=== PATIENT | female | born 1950 | race Caucasian/White ===

== ENCOUNTER → 2016-05-21 | Outpatient (CLI) | payer OTHER, MEDICARE ==
--- NOTE | 2016-05-21 19:10 | DX ---
Lumbar Spine, Two Views History: Back pain. Findings: Five nonrib-bearing lumbar vertebral body segments with partial sacralization of L5 on the left. Small rudimentary disk space noted at L5-S1. L4-L5 grade 1 spondylolisthesis approximately 5 mm . No lumbar compression fractures. Moderate sclerotic changes involving the left sacroiliac joint sug gesting asymmetric sacroiliitis. Impressions 1. Transitional level with partial sacralization of L5 on the left. 2. Left sacroiliitis. 3. L4-L5: Degenerative grade 1 spondylolisthesis. e:jm
--- NOTE | 2016-05-21 19:14 | MR ---
MRI of the Lumbar Spine (Without Contrast) 1733 Hours Clinical Indications: Bilateral leg with weakness and paresthesias. M51.36. Comparison: Plain films from today. Technique: Sagittal and axial T1 and T2 and sagittal STIR MR sequences of the lumbar spine without contrast. Axial imaging from T10 through S1. Findings: Transitional level identified with a moderate-sized disk space which is labeled L5-S1 with partial sacralization of L5 on the left and L4-L5 grade 1 spondylolisthesis. Comparison is made to p cruz films which demonstrate five lumbar vertebral body segments without ribs with partial sacralizat ion of L5 on the left. Recent plain films. Lumbar vertebral bodies are of normal heights without compression fractures. Conus medullaris appear s normal and ends at L1. T10-T11: Moderate degenerative disk disease with moderate disk space narrowing and circumferential di sk bulge with asymmetric right paramedian disk protrusion resulting in mild central canal stenosis wi thout neural foraminal stenosis. T10-T11: Mild bilateral facet arthropathy without disk herniation or stenosis. T12-L1: No disk herniation or stenosis. L1-L2: No disk herniation or stenosis. L2-L3: Mild disk bulge and mild bilateral facet arthropathy resulting in mild central canal stenosis without neural foraminal stenosis. L3-L4: Mild degenerative disk disease with mild disk bulge and moderate bilateral facet arthropathy r esulting in mild central canal stenosis and mild bilateral neural foraminal stenosis. L4-L5: Moderate degenerative disk disease with disk desiccation, slight loss of disk height, previous posterior laminectomies, bilateral moderate facet arthropathy, right worse than left, and degenerati ve grade 1 anterolisthesis with broad-based disk bulge resulting in severe bilateral neural foraminal stenosis, right worse than left, without central canal stenosis. L5-S1: Partial sacralization of L5 on the left with a rudimentary disk space and mild bilateral facet arthropathy. No central canal stenosis or neural foraminal stenosis. No disk herniation. Impressions 1. Transitional level with partial sacralization of L5 on the left as described above. Please correla te with today's plain films. 2. L4-L5: Severe bilateral neural foraminal stenosis, right worse than left, secondary to degenerativ e grade 1 anterolisthesis, disk bulge, bilateral facet arthropathy, with prior laminectomies. 3. Please see above findings at specific disk levels. Preliminary report left on the cell phone of Vianey Pham PA-C, at 1850 hours.
== END ==
LOC: FIMAGING 16:31
PROVIDERS: ATTEND Physician Assistant
DX: M51.36 Other intervertebral disc degeneration, lumbar region (principal); M46.1 Sacroiliitis, not elsewhere classified; M43.12 Spondylolisthesis, cervical region

== ENCOUNTER → 2016-05-24 | Outpatient (CLI) | payer OTHER, MEDICARE ==
--- NOTE | 2016-05-24 14:38 | DX ---
Chest, Two Views at 1252 hours History: Chronic cough, R 05. Comparison: August 2013 Findings: Cardiac silhouette is within normal range. Patchy opacity which may represent early left lower lobe pneumonia. Right lung is clear. Tortuous thoracic aorta. Right shoulder arthroplasty. Mode rate degenerative disk disease midthoracic spine. Impression: 1. Early left lower lobe pneumonia. 2. Recommend followup until clear. A Follow-Up Required test result notification was sent via the [employer] service, 2:36:35 PM, 05/24/2016, [employer] Message ID [id number].
== END ==
LOC: BRMIMAGING 12:44
PROVIDERS: ATTEND Physician Assistant
DX: J18.1 Lobar pneumonia, unspecified organism (principal)
CPT/HCPCS: 71020-PO

== ENCOUNTER → 2016-06-14 | Outpatient (CLI) | payer OTHER, MEDICARE ==
--- NOTE | 2016-06-14 15:27 | DX ---
PA and lateral chest x-ray 1156 hours. History: Follow-up pneumonia. Findings: Comparison to May 24, 2016. Heart size and pulmonary vasculature remain within normal limits. There is no consolidation, effusion , or pneumothorax. There has been resolution of subtle infiltrate left base. Osseous structures are u nchanged. Mild dextroscoliosis noted mid thoracic spine with degenerative disk disease. Impression: 1. Interval resolution of left basilar subtle infiltrate. No new abnormality seen.
== END ==
LOC: BRMIMAGING 11:36
PROVIDERS: ATTEND Physician Assistant
DX: J18.9 Pneumonia, unspecified organism (principal); M41.84 Other forms of scoliosis, thoracic region; M51.34 Other intervertebral disc degeneration, thoracic region
CPT/HCPCS: 71020-PO